=== PATIENT | female | born 1960 | race Caucasian/White ===

== ENCOUNTER 2018-01-15 14:05 | Inpatient (IN) ==
--- NOTE | 2018-01-15 16:10 | ED ---
HPI General Chief Complaint: Abdominal Pain Stated Complaint: swollen stomach/abd pain/diarrhea/blood in stoole Time Seen by Provider: 01/15/18 15:35 Source: patient Mode of arrival: ambulatory Limitations: no limitations History of Present Illness HPI narrative: This patient presents stating that she was referred to the emergency department by a neurologist for the evaluation of abdominal pain and distention. MD complaint: Reports abdominal pain Onset (ago): week(s) (1) Pain Consistency: constant Location: Reports diffuse Severity scale (1-10): 9 Radiation: Reports none Migration to: Reports no migration Relieving factors: nothing Exacerbating factors: nothing Associated symptoms: Reports other (Chest pain, shortness of breath and numbness of her legs); Denies nausea, vomiting, diarrhea, fever and dysuria Related Data Home Medications Medication Instructions Recorded Confirmed No Known Home Medications 01/15/18 01/15/18 Allergies Allergy/AdvReac Type Severity Reaction Status Date / Time No Known Allergies Allergy Verified 01/15/18 15:51 Review of Systems ROS: all other systems reviewed are negative FOR[facility] Medical History Medical History Ascites (Acute) History of bleeding ulcers (Acute) Hypertension (Acute) Social History Social History Substance History: No History of Abuse Second Hand Smoke Exposure: No Smoking Status: Former smoker Tobacco Type: Cigarettes How Often Do You Have a Drink Containing Alcohol: Monthly or less Recent Travel in [facility] within the Last 8 Weeks: No Recent Out of Country Travel within the Last 8 Weeks: No Immunization History Tetanus Immunization: >5 Years Exam Const General: cooperative, comfortable, no acute distress, well developed and well groomed Nutritional Appearance: malnourished and thin Orientation: alert, awake and oriented x3 HENMT Head: normal to inspection, normocephalic and atraumatic Mouth: moist mucous membranes Eyes Conjunctivae: conjunctivae normal Sclera: scleral abnormality (Marked scleral icterus) bilaterally EOM: EOM intact bilaterally Neck Neck: normal visual inspection and full ROM Chest Chest: normal inspection of the chest Resp Effort & Inspection: normal respiratory effort and able to speak in complete sentences Auscultation: clear to auscultation bilaterally Cardio Rate: regular rate Rhythm: regular rhythm GI Inspection: distended and caput medusae present Palpation: tender Back/Spine/Pelvis Cervical Spine: cervical ROM normal Thoracic/Lumbar Spine: thoraco-lumbar ROM normal Skin General: no rashes or lesions noted and turgor normal Neuro General: alert, awake, oriented x3, moves all extremities and CN's II-XI intact bilaterally Extrem General: normal to inspection and full ROM Psych Appearance: grossly normal Mental Status: mental status grossly normal Speech and Movement: speech and movement normal Mood: congruent mood Affect: normal affect Attitude: cooperative Thought Process: normal Thought Content: normal Judgment: judgment good Course Initial Documented Vital Signs Temperature 99.2 F 01/15/18 14:30 Pulse Rate 120 H 01/15/18 14:30 Respiratory Rate 22 01/15/18 14:30 Blood Pressure 118/79 01/15/18 14:30 Pulse Oximetry 99 01/15/18 14:30 Last Documented Vital Signs Temperature 97.8 F 01/15/18 18:00 Pulse Rate 100 H 01/15/18 18:00 Respiratory Rate 16 01/15/18 18:00 Blood Pressure 122/67 01/15/18 18:00 Pulse Oximetry 98 01/15/18 18:00 Medical Decision Making [facility] Narrative Medical decision making narrative: This is a thin, chronically ill-appearing woman who presents to us with a chief complaint of abdominal distention. On exam, she has significant scleral icterus. She has ascites. She has caput medusae. Abdominal workup is in process including ammonia level, PT and PTT and CT of the abdomen and pelvis. CT shows cirrhosis of the liver and splenomegaly with moderate ascites. She also has a gallstone. Medical Screen Exam Complete: Yes Emergency Medical Condition: Yes Differential Diagnosis Differential Diagnosis: Differential diagnosis of abdominal pain includes but is not limited to gastritis, pancreatitis, hepatitis, gastroenteritis, constipation, urinary retention, peptic ulcer disease, diverticulitis or appendicitis Lab Data Lab results reviewed: Yes I reviewed the patient's lab results. Result diagrams: 01/15/18 16:09 01/15/18 16:09 Lab Results 01/15/18 01/15/18 01/15/18 Range/Units 16:09 16: 16:09 WBC 9.8 (4.0-11.0) th/mm3 RBC 2.86 L (4.00-5.30) mil/mm3 Hgb 9.9 L (11.6-15.3) gm/dL Hct 29.5 L (35.0-46.0) % MCV 103.4 H (80.0-100.0) fL MCH 34.7 H (27.0-34.0) pg MCHC 33.6 (32.0-36.0) % RDW 18.3 H (11.6-17.2) % Plt Count 116 L (150-450) th/mm3 MPV 9.0 (7.0-11.0) fL Neut % (Auto) 82.1 H (16.0-70.0) % Lymph % (Auto) 7.1 L (9.0-44.0) % Kimble % (Auto) 10.3 H (0.0-8.0) % Eos % (Auto) 0.2 (0.0-4.0) % Baso % (Auto) 0.3 (0.0-2.0) % Neut # (Auto) 8.1 H (1.8-7.7) th/mm3 Lymph # (Auto) 0.7 L (1.0-4.8) th/mm3 Kimble # (Auto) 1.0 H (0.0-0.9) th/mm3 Eos # (Auto) 0.0 (0.0-0.4) th/mm3 Baso # (Auto) 0.0 (0.0-0.2) th/mm3 WBC Differential . Differential Comment Auto diff final PT 17.2 H (9.8-11.6) sec INR 1.7 Ratio APTT 37.1 H (23.4-31.7) sec Sodium 126 L (136-145) meq/L Potassium 3.9 (3.5-5.1) meq/L Chloride 84 L (98-107) meq/L Carbon Dioxide 28.8 (21.0-32.0) meq/L Anion Gap 13 (5-15) meq/L BUN 11 (7-18) mg/dL Creatinine 0.70 (0.50-1.00) mg/dL Estimated GFR 87 L (>89) mL/min Random Glucose 88 (74-106) mg/dL Calcium 7.5 L (8.5-10.1) mg/dL Magnesium 1.5 (1.5-2.5) mg/dL Total Bilirubin 9.2 H (0.2-1.0) mg/dL AST 158 H (15-37) U/L ALT 57 H (10-53) U/L Alkaline Phosphatase 163 H (45-117) U/L Ammonia (11-32) mcmol/L Total Protein 7.1 (6.4-8.2) g/dL Albumin 2.1 L (3.4-5.0) g/dL Lipase 338 (73-393) U/L 01/15/18 Range/Units 16:09 WBC (4.0-11.0) th/mm3 RBC (4.00-5.30) mil/mm3 Hgb (11.6-15.3) gm/dL Hct (35.0-46.0) % MCV (80.0-100.0) fL MCH (27.0-34.0) pg MCHC (32.0-36.0) % RDW (11.6-17.2) % Plt Count (150-450) th/mm3 MPV (7.0-11.0) fL Neut % (Auto) (16.0-70.0) % Lymph % (Auto) (9.0-44.0) % Kimble % (Auto) (0.0-8.0) % Eos % (Auto) (0.0-4.0) % Baso % (Auto) (0.0-2.0) % Neut # (Auto) (1.8-7.7) th/mm3 Lymph # (Auto) (1.0-4.8) th/mm3 Kimble # (Auto) (0.0-0.9) th/mm3 Eos # (Auto) (0.0-0.4) th/mm3 Baso # (Auto) (0.0-0.2) th/mm3 WBC Differential Differential Comment PT (9.8-11.6) sec INR Ratio APTT (23.4-31.7) sec Sodium (136-145) meq/L Potassium (3.5-5.1) meq/L Chloride (98-107) meq/L Carbon Dioxide (21.0-32.0) meq/L Anion Gap (5-15) meq/L BUN (7-18) mg/dL Creatinine (0.50-1.00) mg/dL Estimated GFR (>89) mL/min Random Glucose (74-106) mg/dL Calcium (8.5-10.1) mg/dL Magnesium (1.5-2.5) mg/dL Total Bilirubin (0.2-1.0) mg/dL AST (15-37) U/L ALT (10-53) U/L Alkaline Phosphatase (45-117) U/L Ammonia 29 (11-32) mcmol/L Total Protein (6.4-8.2) g/dL Albumin (3.4-5.0) g/dL Lipase (73-393) U/L Imaging Data Radiologist's impression: Abdomen/Pelvis CT 01/15/18 16:02 CONCLUSION: 1. Cirrhotic appearing liver with diffusely heterogeneous enhancement of nearly the entire right lobe of the liver. Although this may reflect heterogeneous pattern of sparing, cannot exclude an infiltrative mass. Recommend outpatient Eovist MRI examination for better characterization. 2. Evidence for portal hypertension with moderate amount of ascites. 3. Colonic diverticulosis without definitive evidence for diverticulitis. 4. Cholelithiasis. Discharge Plan Discharge Disposition Patient Disposition: 30 Still Patient Discharge Details Diagnosis: Cirrhosis, Ascites, Congestive splenomegaly Physicians Team ED Provider: Charline Abdalla Primary Care Provider: UNKNOWN, Rxs /Orders / Referrals /Forms Prescriptions: No Action No Known Home Medications RF: 0 Status ED Status: With Doctor
[2018-01-15 16:42] LABS: Baso % (Auto) 0.3 % (0.0-2.0); Eos % (Auto) 0.2 % (0.0-4.0); Hematocrit 29.5 % (35.0-46.0); Hemoglobin 9.9 gm/dL (11.6-15.3); Lymph # (Auto) 0.7 th/mm3 (1.0-4.8); Lymph % (Auto) 7.1 % (9.0-44.0); Mean Corpuscular HGB Conc 33.6 % (32.0-36.0); Mean Corpuscular Hemoglobin 34.7 pg (27.0-34.0); Mean Corpuscular Volume 103.4 fL (80.0-100.0); Mono % (Auto) 10.3 % (0.0-8.0); Neut # (Auto) 8.1 th/mm3 (1.8-7.7); Neut % (Auto) 82.1 % (16.0-70.0); Platelet Count 116 th/mm3 (150-450); Red Blood Count 2.86 mil/mm3 (4.00-5.30); Red Cell Distribution Width 18.3 % (11.6-17.2); White Blood Count 9.8 th/mm3 (4.0-11.0)
[2018-01-15 16:53] LABS: Activated Partial Thrombo Time 37.1 sec (23.4-31.7); INR 1.7 Ratio; Prothrombin Time 17.2 sec (9.8-11.6)
[2018-01-15 17:04] LABS: Alanine Aminotransferase 57 U/L (10-53); Alkaline Phosphatase 163 U/L (45-117); Total Protein 7.1 g/dL (6.4-8.2)
[2018-01-15 17:12] LABS: Albumin 2.1 g/dL (3.4-5.0); Anion Gap 13 meq/L (5-15); Aspartate Aminotransferase 158 U/L (15-37); Blood Urea Nitrogen 11 mg/dL (7-18); Calcium 7.5 mg/dL (8.5-10.1); Carbon Dioxide 28.8 meq/L (21.0-32.0); Chloride 84 meq/L (98-107); Glomerular Filtration Rate 87 mL/min (>89); Glucose,Random 88 mg/dL (74-106); Lipase 338 U/L (73-393); Magnesium 1.5 mg/dL (1.5-2.5); Sodium 126 meq/L (136-145)
[2018-01-15 17:13] LABS: Potassium 3.9 meq/L (3.5-5.1)
--- NOTE | 2018-01-15 18:55 | CT ---
EXAM DATE: 01/15/2018 6:49 PM EST AGE/SEX: 57 years / Female INDICATIONS: Abdominal pain and distention CLINICAL DATA: This is the patient's initial encounter. Patient reports that signs and symptoms have been present for 1 week and indicates a pain score of 8/10. MEDICAL/SURGICAL HISTORY: Hypertension. Hypertension. Bleeding ulcer None. ORAL CONTRAST: No oral contrast ingested. RADIATION DOSE: 6.85 CTDI (mGy) COMPARISON: No prior exams available for comparison. TECHNIQUE: Multiple contiguous axial images were obtained through the abdomen and pelvis following b olus infusion of 88 ml Omnipaque 350 (iohexol) nonionic water-soluble contrast as a single exam dos e. No oral contrast ingested. Using automated exposure control and adjustment of the mA and/or kV ac cording to patient size, radiation dose was kept as low as reasonably achievable to obtain optimal di agnostic quality images. DICOM format image data is available electronically for review and comparis on. FINDINGS: LOWER LUNGS: Mild groundglass opacities at the lung bases. LIVER: Cirrhotic appearing liver with diffusely heterogeneous enhancement of the entire right lobe o f the liver. There is a 1.4 cm cyst centrally in the liver. Portal veins appear diminutive although p atent. Recanalized periumbilical vein. Gallstone in the gallbladder. SPLEEN: Enlarged. PANCREAS: Unremarkable without mass or calcification. KIDNEYS: Kidneys demonstrate symmetrical enhancement and are symmetrical in size without evidence fo r radiopaque renal calculi or hydronephrosis. ADRENAL GLANDS: Unremarkable. AORTA: Earline-aneurysmal. BOWEL/MESENTERY: Moderate amount of ascites. Mild sigmoid diverticulosis and scattered descending co lizz diverticula. No dilated loops of bowel. No free air or pneumatosis. Prominent splenorenal collate rals. ABDOMINAL WALL: Intact. RETROPERITONEUM: No evidence of adenopathy in the retrocrural, para-aortic, or deep pelvic regions. BLADDER: Contours are smooth. REPRODUCTIVE: No abnormal masses or calcifications seen. BONY STRUCTURES: Mild degenerative spondylosis of the lumbar spine. CONCLUSION: 1. Cirrhotic appearing liver with diffusely heterogeneous enhancement of nearly the entire right lob e of the liver. Although this may reflect heterogeneous pattern of sparing, cannot exclude an infiltr ative mass. Recommend outpatient Eovist MRI examination for better characterization. 2. Evidence for portal hypertension with moderate amount of ascites. 3. Colonic diverticulosis without definitive evidence for diverticulitis. 4. Cholelithiasis. Electronically signed by: Ronny Guzman MD 01/15/2018 6:54 PM EST
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
[2018-01-15] MEDS ORDERED: LORazepam 1 MG Tablet PO PRN (20:41)
[2018-01-15] MEDS ORDERED: Haloperidol Inj 5 MG/ML Ampul IV.PUSH PRN (20:41)
[2018-01-15] MEDS: Multivitamin/Minerals Therapeutic Tablet PO SCH (21:18)
--- NOTE | 2018-01-15 21:18 | CT ---
EXAM DATE: 01/15/2018 9:15 PM EST AGE/SEX: 57 years / Female INDICATIONS: Headache. CLINICAL DATA: This is the patient's initial encounter. Patient reports that signs and symptoms have been present for 1 day and indicates a pain score of 6/10. MEDICAL/SURGICAL HISTORY: Hypertension. Ascites None. RADIATION DOSE: 56.35 CTDI (mGy) COMPARISON: [facility] – [place] ABDOMEN & PELVIS W CONTRAST, 01/15/2018. . TECHNIQUE: CT of the head without contrast. Using automated exposure control and adjustment of the mA and/or kV according to patient size, radiation dose was kept as low as reasonably achievable to ob tain optimal diagnostic quality images. DICOM format image data is available electronically for revi ew and comparison. FINDINGS: Cerebrum: Moderate diffuse cerebral atrophy. The ventricles are normal for degree of atrophy. No ambika dence of midline shift, mass lesion, hemorrhage or acute infarction. No extraaxial fluid collections are seen. Posterior Fossa: The cerebellum and brainstem are intact. The 4th ventricle is midline. The cerebe llopontine angle is unremarkable. Extracranial: The visualized portion of the orbits is intact. Skull: The calvaria is intact. No evidence of skull fracture. CONCLUSION: 1. Moderate diffuse cerebral atrophy, slightly out of proportion to age. 2. No acute intracranial abnormality. . Electronically signed by: Ronny Guzman MD 01/15/2018 9:17 PM EST
[2018-01-15] MEDS: Folic Acid 1 MG Tablet PO SCH (22:33)
[2018-01-16] LABS: Anion Gap 12 meq/L (5-15); Blood Urea Nitrogen 11 mg/dL (7-18); Carbon Dioxide 31.4 meq/L (21.0-32.0); Chloride 84 meq/L (98-107); Glomerular Filtration Rate Greater Than 89 mL/min (>89); Glucose,Random 83 mg/dL (74-106); Sodium 127 meq/L (136-145)
[2018-01-16 00:07] LABS: Potassium 2.7 meq/L (3.5-5.1)
[2018-01-16 00:14] LABS: Albumin 1.9 g/dL (3.4-5.0); Calcium-Albumin Corrected 8.7 mg/dL (8.5-10.1)
[2018-01-16 01:07] LABS: Magnesium 1.2 mg/dL (1.5-2.5)
[2018-01-16] MEDS: Potassium Chlor 20 mEq Premix 20 MEQ/100 ML PIGGYBACK IV.SIG SCH ×3 (01:15→22:31)
[2018-01-16 02:44] LABS: Bilirubin,Urine Moderate (Negative); Clarity,Urine Hazy (Clear); Color,Urine Amber (Yellw/Straw); Glucose,Urine (UA) Negative (Negative); Hyaline Casts,Urine 17 /lpf (0-3); Leukocyte Esterase,Urine Negative (Negative); Mucus,Urine Few /lpf (Occasional); Nitrite,Urine Negative (Negative); Renal Epithelial Cells,Urine <1 /hpf; Squamous Epithelial Cell,Urine 4 /hpf (0-5); Urobilinogen,Urine 4 or Greater mg/dL (Less than 2)
[2018-01-16 02:46] LABS: Ictotest,Urine Positive (Negative)
[2018-01-16 02:47] LABS: Amphetamine Screen,Urine Neg (Neg); Barbiturate Screen,Urine Neg (Neg); Cannabinoid Screen,Urine Neg (Neg); Cocaine Screen,Urine Neg (Neg)
[2018-01-16 02:51] LABS: Opiate Screen,Urine Neg (Neg)
[2018-01-16 07:35] LABS: Hematocrit 24.2 % (35.0-46.0); Hemoglobin 8.3 gm/dL (11.6-15.3); Mean Corpuscular HGB Conc 34.1 % (32.0-36.0); Mean Corpuscular Hemoglobin 34.5 pg (27.0-34.0); Mean Corpuscular Volume 101.4 fL (80.0-100.0); Mean Platelet Volume 8.4 fL (7.0-11.0); Platelet Count 93 th/mm3 (150-450); Red Blood Count 2.39 mil/mm3 (4.00-5.30); Red Cell Distribution Width 17.1 % (11.6-17.2); White Blood Count 6.6 th/mm3 (4.0-11.0)
[2018-01-16 08:11] LABS: Alanine Aminotransferase 46 U/L (10-53); Albumin 1.7 g/dL (3.4-5.0); Alkaline Phosphatase 136 U/L (45-117); Anion Gap 9 meq/L (5-15); Aspartate Aminotransferase 108 U/L (15-37); Blood Urea Nitrogen 9 mg/dL (7-18); Calcium 6.6 mg/dL (8.5-10.1); Carbon Dioxide 33.5 meq/L (21.0-32.0); Chloride 87 meq/L (98-107); Glomerular Filtration Rate Greater Than 89 mL/min (>89); Glucose,Random 88 mg/dL (74-106); Sodium 129 meq/L (136-145); Total Protein 5.7 g/dL (6.4-8.2)
[2018-01-16 08:23] LABS: Potassium 2.7 meq/L (3.5-5.1)
[2018-01-16] MEDS ORDERED: Cefotaxime Inj 2,000 MG in Sodium Chloride 0.9% Inj 100 ML IV.SIG SCH (09:00)
[2018-01-16 09:02] LABS: Hepatitis A IgM Antibody Nonreactive (Nonreactive)
[2018-01-16 09:03] LABS: Hepatitits B Surface Antigen Nonreactive (Nonreactive)
[2018-01-16] MEDS: Multivitamin Inj 10 ML, Thiamine Inj 100 MG, Folic Acid Inj 1 MG in Sodium Chloride 0.4... IV.SIG SCH (10:12)
[2018-01-16] MEDS: Multivitamin/Minerals Therapeutic Tablet PO SCH (10:16)
[2018-01-16] MEDS: Pantoprazole Sodium 20 MG DR Tablet PO SCH (10:16)
[2018-01-16] MEDS: Magnesium Oxide 400 MG Tablet PO SCH (10:16)
[2018-01-16] MEDS: Folic Acid 1 MG Tablet PO SCH (10:17)
[2018-01-16] MEDS ORDERED: Potassium Chloride 20 MEQ Pwd Pkt NG/OG ONE (11:00)
[2018-01-16] MEDS ORDERED: Potassium Chloride 25 MEQ Effervescent Tablet NG/OG ONE (11:00)
[2018-01-16 14:06] LABS: Calcium 6.7 mg/dL (8.5-10.1); Carbon Dioxide 33.9 meq/L (21.0-32.0)
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
[2018-01-16 14:17] LABS: Calcium-Albumin Corrected 8.3 mg/dL (8.5-10.1)
[2018-01-16 14:25] LABS: Potassium 2.6 meq/L (3.5-5.1)
[2018-01-16] MEDS ORDERED: Potassium Chlor 20 mEq Premix 20 MEQ/100 ML PIGGYBACK IV.SIG ONE (15:40)
[2018-01-16 20:08] LABS: Carbon Dioxide 34.2 meq/L (21.0-32.0)
[2018-01-16 20:26] LABS: Potassium 2.9 meq/L (3.5-5.1)
[2018-01-16 20:32] LABS: Calcium-Albumin Corrected 8.6 mg/dL (8.5-10.1)
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
[2018-01-16] MEDS ORDERED: Magnesium Citrate Liq 300 ML Bottle PO ONE (23:00)
[2018-01-17] MEDS ORDERED: Magnesium Oxide 400 MG Tablet PO ONE (00:09)
[2018-01-17] MEDS: Potassium Chlor 20 mEq Premix 20 MEQ/100 ML PIGGYBACK IV.SIG SCH (00:42)
[2018-01-17 07:07] LABS: Alpha Fetoprotein Tumor Marker 4.1 ng/mL (0.5-8.0); Anion Gap 7 meq/L (5-15); Blood Urea Nitrogen 7 mg/dL (7-18); Calcium 6.8 mg/dL (8.5-10.1); Chloride 92 meq/L (98-107); Glomerular Filtration Rate Greater Than 89 mL/min (>89); Glucose,Random 144 mg/dL (74-106); Magnesium 1.2 mg/dL (1.5-2.5); Potassium 3.5 meq/L (3.5-5.1); Sodium 132 meq/L (136-145)
[2018-01-17 07:19] LABS: Albumin 1.7 g/dL (3.4-5.0); Calcium-Albumin Corrected 8.6 mg/dL (8.5-10.1)
[2018-01-17 07:23] LABS: Eos # (Auto) 0.1 th/mm3 (0.0-0.4); Eos % (Auto) 1.6 % (0.0-4.0); Hematocrit 22.8 % (35.0-46.0); Lymph # (Auto) 0.9 th/mm3 (1.0-4.8); Lymph % (Auto) 19.3 % (9.0-44.0); Mean Corpuscular HGB Conc 35.1 % (32.0-36.0); Mean Corpuscular Hemoglobin 35.5 pg (27.0-34.0); Mean Corpuscular Volume 100.9 fL (80.0-100.0); Mono # (Auto) 0.6 th/mm3 (0.0-0.9); Mono % (Auto) 13.3 % (0.0-8.0); Neut # (Auto) 3.2 th/mm3 (1.8-7.7); Neut % (Auto) 64.8 % (16.0-70.0); Platelet Count 84 th/mm3 (150-450); Red Blood Count 2.26 mil/mm3 (4.00-5.30); Red Cell Distribution Width 17.5 % (11.6-17.2); White Blood Count 4.9 th/mm3 (4.0-11.0)
[2018-01-17 08:14] LABS: Platelet Morphology Normal (Normal); Target Cells 1+
[2018-01-17] MEDS: Pantoprazole Sodium 20 MG DR Tablet PO SCH (08:47)
[2018-01-17] MEDS: Magnesium Oxide 400 MG Tablet PO SCH (08:47)
[2018-01-17] MEDS: Multivitamin/Minerals Therapeutic Tablet PO SCH (08:47)
[2018-01-17] MEDS: Multivitamin Inj 10 ML, Thiamine Inj 100 MG, Folic Acid Inj 1 MG in Sodium Chloride 0.4... IV.SIG SCH (08:48)
--- NOTE | 2018-01-17 11:32 | ECHRPT ---
Indication: Heart failure CONCLUSIONS Normal left ventricular size. Wall thickness is normal. The left ventricular systolic function is normal with an estimated ejection fraction in the range of 55-60%. No definite regional wall motion abnormalities are present. The estimated pulmonary arterial pressure is 40 mmHg. There is trace to mild tricuspid regurgitati on. BP: / HR: Rhythm: MEASUREMENTS (Male / Female) Normal Values Technical Quality: 2D ECHO LV Diastolic Diameter PLAX 4.5 cm 4.2 - 5.9 / 3.9 - 5.3 cm LV Systolic Diameter PLAX 2.8 cm IVS Diastolic Thickness 0.8 cm 0.6 - 1.0 / 0.6 - 0.9 cm LVPW Diastolic Thickness 1.0 cm 0.6 - 1.0 / 0.6 - 0.9 cm LV Relative Wall Thickness 0.4 RV Internal Dim ED PLAX 3.0 cm LVOT Diameter 1.6 cm Aortic Root Diameter 2.5 cm LA Systolic Diameter LX 3.1 cm 3.0 - 4.0 / 2.7 - 3.8 cm LV Ejection Fraction MOD 4C 58.3 % LV Ejection Fraction 4C AL 60.7 % M-MODE Aortic Root Diameter MM 3.0 cm LA Systolic Diameter MM 4.4 cm LA Ao Ratio MM 1.5 AV Cusp Separation MM 2.3 cm DOPPLER AV Peak Velocity 179.0 cm/s AV Peak Gradient 12.8 mmHg LVOT Peak Velocity 130.0 cm/s LVOT Peak Gradient 6.8 mmHg AV Area Cont Eq pk 1.5 cm Mitral E Point Velocity 77.0 cm/s Mitral A Point Velocity 115.0 cm/s Mitral E to A Ratio 0.7 LV E' Lateral Velocity 8.4 cm/s Mitral E to LV E' Lateral Ratio 9.2 LV E' Septal Velocity 6.6 cm/s Mitral E to LV E' Septal Ratio 11.6 TR Peak Velocity 350.0 cm/s TR Peak Gradient 49.0 mmHg Right Atrial Pressure 10.0 mmHg Pulmonary Artery Systolic Pressu 59.0 mmHg Right Ventricular Systolic Press 59.0 mmHg PV Peak Velocity 103.0 cm/s PV Peak Gradient 4.2 mmHg FINDINGS LEFT VENTRICLE Normal left ventricular size. Wall thickness is normal. The left ventricular systolic function is normal with an estimated ejection fraction in the range of 55-60%. No definite regional wall motion abnormalities are present. RIGHT VENTRICLE Normal right ventricular size and systolic function. LEFT ATRIUM The left atrial size is mildly dilated. RIGHT ATRIUM The right atrial size is normal. ATRIAL SEPTUM Normal atrial septal thickness without atrial level shunting by limited color doppler interrogation. AORTA The aortic root and proximal ascending aorta are normal in size on limited imaging. MITRAL VALVE Trace mitral valve regurgitation. AORTIC VALVE Trileaflet aortic valve. No aortic valve stenosis or regurgitation. TRICUSPID VALVE The estimated pulmonary arterial pressure is 40 mmHg. There is trace to mild tricuspid regurgitation. PULMONARY VALVE No pulmonary valve regurgitation or stenosis. VESSELS The inferior vena cava is normal in size. PERICARDIUM No pericardial effusion. Chato Martínez MD (Electronically Signed) Final Date:17 January 2018 11:31
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
[2018-01-17 16:04] LABS: % Iron Saturation 48.7 % (20-50)
[2018-01-17 16:21] LABS: Alpha Fetoprotein Tumor Marker 4.2 ng/mL (0.5-8.0)
--- NOTE | 2018-01-17 19:56 | ECG ---
Date Performed: 01/16/2018 Time Performed: 11:13:48 PTAGE: 57 years EKG: SINUS TACHYCARDIA ABNORMAL RHYTHM ECG NO PREVIOUS TRACING DOCTOR: Abelino Liao Interpretating Date/Time 01/17/2018 19:53:32
[2018-01-18] MEDS ORDERED: Morphine Inj 4 MG/ML Vial IV.PUSH ONE (01:15)
[2018-01-18 05:53] LABS: Baso # (Auto) 0.1 th/mm3 (0.0-0.2); Baso % (Auto) 1.4 % (0.0-2.0); Eos # (Auto) 0.1 th/mm3 (0.0-0.4); Eos % (Auto) 1.3 % (0.0-4.0); Hematocrit 22.9 % (35.0-46.0); Hemoglobin 7.9 gm/dL (11.6-15.3); Lymph % (Auto) 18.7 % (9.0-44.0); Mean Corpuscular HGB Conc 34.7 % (32.0-36.0); Mean Corpuscular Hemoglobin 35.1 pg (27.0-34.0); Mean Corpuscular Volume 101.1 fL (80.0-100.0); Mean Platelet Volume 8.9 fL (7.0-11.0); Mono # (Auto) 0.7 th/mm3 (0.0-0.9); Mono % (Auto) 12.8 % (0.0-8.0); Neut # (Auto) 3.5 th/mm3 (1.8-7.7); Neut % (Auto) 65.8 % (16.0-70.0); Platelet Count 80 th/mm3 (150-450); Red Blood Count 2.26 mil/mm3 (4.00-5.30); Red Cell Distribution Width 17.5 % (11.6-17.2); White Blood Count 5.4 th/mm3 (4.0-11.0)
[2018-01-18 06:26] LABS: Alanine Aminotransferase 42 U/L (10-53); Albumin 1.7 g/dL (3.4-5.0); Alkaline Phosphatase 273 U/L (45-117); Anion Gap 6 meq/L (5-15); Aspartate Aminotransferase 96 U/L (15-37); Blood Urea Nitrogen 8 mg/dL (7-18); Calcium 6.5 mg/dL (8.5-10.1); Carbon Dioxide 33.5 meq/L (21.0-32.0); Chloride 92 meq/L (98-107); Glomerular Filtration Rate Greater Than 89 mL/min (>89); Glucose,Random 102 mg/dL (74-106); Sodium 131 meq/L (136-145); Total Protein 5.8 g/dL (6.4-8.2)
[2018-01-18 06:29] LABS: Potassium 2.7 meq/L (3.5-5.1)
[2018-01-18] MEDS ORDERED: Potassium Chlor 20 mEq Premix 20 MEQ/100 ML PIGGYBACK IV.SIG ONE (07:10)
[2018-01-18] MEDS ORDERED: Potassium Chloride 25 MEQ Effervescent Tablet PO ONE (07:10)
[2018-01-18 07:44] LABS: Platelet Morphology Normal (Normal); Target Cells 2+
--- NOTE | 2018-01-18 10:54 | GIPROC ---
[facility] [address] [facility]. [facility], [address] EGD PROCEDURE REPORT EXAM DATE: 01/18/2018 PATIENT NAME: Lanette Mckee MR #: [id number] BIRTHDATE: 1960 ATTENDING: Gaurav Herrera MD ORDER #: [id number] [employer] INTERN: Scotty Katz Jones, Julie, and Ilsa Lieberman STATUS: inpatient INDICATIONS: The patient is a 57 yr old female here for an EGD due to Ascites, Cirrhosis PROCEDURE PERFORMED: EGD, diagnostic MEDICATIONS: Per Anesthesia and None. TOPICAL ANESTHETIC: none CONSENT: The patient understands the risks and benefits of the procedure and understands that these risks include, but are not limited to: sedation, allergic reaction, infection, perforation and/or bleeding. Alternative means of evaluation and treatment include, among others: physical exam, x-rays, and/or surgical intervention. The patient elects to proceed with this endoscopic procedure. medical equipment was checked for proper function. Hand hygiene and appropriate measures for infection prevention was taken. After the risks, benefits and alternatives of the procedure were thoroughly explained, Informed consent was verified, confirmed and timeout was successfully executed by the treatment team. The patient was anesthetized with topical anesthesia and the Pentax [id number] endoscope was introduced through the mouth and advanced to the second portion of the duodenum. Retroflexed views revealed a hiatal hernia The gastroscope was then slowly withdrawn and removed. ESOPHAGUS: There was LA Class B esophagitis noted. There were 2 columns of small varices. STOMACH: Moderate portal hypertensive gastropathy was found. DUODENUM: The duodenal mucosa appeared normal in the entire duodenum. ADVERSE EVENTS: There were no complications. IMPRESSIONS: 1. There was LA Class B esophagitis noted 2. Portal hypertensive gastropathy was found 3. Normal duodenal mucosa in the entire duodenum 4. Retroflexed views revealed a hiatal hernia RECOMMENDATIONS: Add Aldactone,Xifaxan PATIENT CONDITION: stable DISPOSITION: Inpatient REPEAT EXAM: Return 1 year EGD Gaurav Herrera MD eSigned: Gaurav Herrera MD 01/18/2018 10:54 AM cc: PATIENT NAME: Lanette Mckee MR#: [id number]
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
[2018-01-18 14:03] LABS: Anion Gap 6 meq/L (5-15); Blood Urea Nitrogen 8 mg/dL (7-18); Calcium 6.8 mg/dL (8.5-10.1); Carbon Dioxide 35.1 meq/L (21.0-32.0); Chloride 92 meq/L (98-107); Glomerular Filtration Rate Greater Than 89 mL/min (>89); Glucose,Random 107 mg/dL (74-106); Sodium 133 meq/L (136-145)
[2018-01-18 14:12] LABS: Potassium 2.7 meq/L (3.5-5.1)
[2018-01-18 14:20] LABS: Albumin 1.8 g/dL (3.4-5.0); Calcium-Albumin Corrected 8.6 mg/dL (8.5-10.1)
[2018-01-18] MEDS: Multivitamin/Minerals Therapeutic Tablet PO SCH (17:02)
[2018-01-18] MEDS: Magnesium Oxide 400 MG Tablet PO SCH (17:03)
[2018-01-18] MEDS: Multivitamin Inj 10 ML, Thiamine Inj 100 MG, Folic Acid Inj 1 MG in Sodium Chloride 0.4... IV.SIG SCH (17:28)
[2018-01-18] MEDS: Potassium Chlor 20 mEq Premix 20 MEQ/100 ML PIGGYBACK IV.SIG SCH ×2 (17:34→19:11)
[2018-01-18] MEDS: rifAXIMin 550 MG Tablet PO SCH ×2 (19:45→20:02)
[2018-01-18] MEDS: Pantoprazole Sodium 20 MG DR Tablet PO SCH (20:04)
[2018-01-18 22:28] LABS: Anion Gap 5 meq/L (5-15); Blood Urea Nitrogen 6 mg/dL (7-18); Calcium 6.7 mg/dL (8.5-10.1); Carbon Dioxide 35.3 meq/L (21.0-32.0); Chloride 92 meq/L (98-107); Glomerular Filtration Rate Greater Than 89 mL/min (>89); Glucose,Random 101 mg/dL (74-106); Sodium 132 meq/L (136-145)
[2018-01-18 22:44] LABS: Potassium 2.7 meq/L (3.5-5.1)
[2018-01-18 22:56] LABS: Albumin 1.9 g/dL (3.4-5.0); Calcium-Albumin Corrected 8.4 mg/dL (8.5-10.1)
[2018-01-18] MEDS ORDERED: Magnesium Oxide 400 MG Tablet PO ONE (23:43)
[2018-01-19 03:24] LABS: Baso % (Auto) 0.7 % (0.0-2.0); Eos # (Auto) 0.1 th/mm3 (0.0-0.4); Eos % (Auto) 1.1 % (0.0-4.0); Hematocrit 23.6 % (35.0-46.0); Hemoglobin 8.1 gm/dL (11.6-15.3); Lymph # (Auto) 0.9 th/mm3 (1.0-4.8); Mean Corpuscular HGB Conc 34.4 % (32.0-36.0); Mean Corpuscular Hemoglobin 34.9 pg (27.0-34.0); Mean Corpuscular Volume 101.7 fL (80.0-100.0); Mean Platelet Volume 9.1 fL (7.0-11.0); Mono # (Auto) 0.8 th/mm3 (0.0-0.9); Mono % (Auto) 14.7 % (0.0-8.0); Neut # (Auto) 3.8 th/mm3 (1.8-7.7); Neut % (Auto) 67.5 % (16.0-70.0); Platelet Count 90 th/mm3 (150-450); Red Blood Count 2.32 mil/mm3 (4.00-5.30); Red Cell Distribution Width 17.7 % (11.6-17.2); White Blood Count 5.7 th/mm3 (4.0-11.0)
[2018-01-19 03:36] LABS: Anion Gap 5 meq/L (5-15); Blood Urea Nitrogen 6 mg/dL (7-18); Calcium 6.7 mg/dL (8.5-10.1); Carbon Dioxide 32.7 meq/L (21.0-32.0); Chloride 94 meq/L (98-107); Glomerular Filtration Rate Greater Than 89 mL/min (>89); Glucose,Random 97 mg/dL (74-106); Potassium 3.4 meq/L (3.5-5.1); Sodium 132 meq/L (136-145)
[2018-01-19 03:43] LABS: Albumin 1.7 g/dL (3.4-5.0); Calcium-Albumin Corrected 8.5 mg/dL (8.5-10.1)
[2018-01-19 04:11] LABS: Target Cells 1+
[2018-01-19 08:01] LABS: Anion Gap 5 meq/L (5-15); Blood Urea Nitrogen 7 mg/dL (7-18); Calcium 6.9 mg/dL (8.5-10.1); Chloride 94 meq/L (98-107); Glomerular Filtration Rate Greater Than 89 mL/min (>89); Glucose,Random 142 mg/dL (74-106); Potassium 3.4 meq/L (3.5-5.1); Sodium 131 meq/L (136-145)
[2018-01-19 08:08] LABS: Albumin 1.7 g/dL (3.4-5.0); Calcium-Albumin Corrected 8.7 mg/dL (8.5-10.1)
[2018-01-19] MEDS: rifAXIMin 550 MG Tablet PO SCH ×2 (09:16→20:34)
[2018-01-19] MEDS: Multivitamin/Minerals Therapeutic Tablet PO SCH (09:17)
[2018-01-19] MEDS: Magnesium Oxide 400 MG Tablet PO SCH (09:20)
[2018-01-19] MEDS: Multivitamin Inj 10 ML, Thiamine Inj 100 MG, Folic Acid Inj 1 MG in Sodium Chloride 0.4... IV.SIG SCH (09:25)
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
--- NOTE | 2018-01-19 15:12 | P.PNGI ---
Subjective Interval history: Pt resting in bed Very nausea, no emesis Has not eaten anything from her lunch tray BM earlier today, states soft Continued abdominal pain and swelling Physical Exam Vital signs: Vital Signs 01/18/18 16:00 01/18/18 20:00 01/19/18 00:00 Temperature 97.8 F 98.8 F 98.6 F Pulse Rate 99 H 102 H 101 H Respiratory Rate 17 16 17 Blood Pressure 112/64 104/67 93/59 L Pulse Oximetry 95 96 96 01/19/18 04:00 01/19/18 08:00 01/19/18 12:00 Temperature 97.9 F 97.8 F 98.4 F Pulse Rate 95 H 98 H 101 H Respiratory Rate 16 17 17 Blood Pressure 93/56 L 97/55 L 100/63 Pulse Oximetry 94 L 94 L 96 Intake & Output 01/18/18 01/19/18 01/19/18 18:59 06:59 18:59 Intake Total 200 / 200 1091.2 / 1091.2 611.2 / 611.2 Output Total 1000 / 1000 Balance 200 / 200 91.2 / 91.2 611.2 / 611.2 Weight 57 kg Intake: IV 100 / 100 811.2 / 811.2 611.2 / 611.2 MVI-12 Inj 10 ML Thiamine Inj 511.2 / 511.2 511.2 / 511.2 100 MG Folvite Inj 1 MG In 1/2 Normal Saline Inj 500 ML @ 127. 8 mls/hr IV.SIG DAILY MAX Rx#: [id number] KCl 20 mEq Premix Inj 20 meq In 300 / 300 100 ml @ 50 mls/hr IV.SIG Q2H MAX Rx#:[id number] Rocephin Inj 2,000 MG In NS Inj 100 / 100 100 / 100 100 ML @ 200 mls/hr IV.SIG Q24H MAX Rx#:[id number] Oral 280 / 280 Anesthesia Amount 100 / 100 Output: Urine 1000 / 1000 Other: Date of Last Bowel Movement 01/19/18 - Constitutional no acute distress - Routine HEENT Exam Head: Present: normocephalic, atraumatic Eye: Present: conjunctival icterus - Routine Respiratory Exam Absent: accessory muscle use - Routine Abdominal Exam Present: soft, normoactive bowel sounds, distended. Absent: tenderness - Routine Skin Exam Present: dry, warm - Routine Neurological Exam Present: alert, oriented X3 Results - Labs CBC & Chem 7: 01/19/18 02:32 01/19/18 06:55 Laboratory Results - last 24 hr 01/16/18 01/17/18 01/18/18 07:13 14:59 20:29 WBC RBC Hgb Hct MCV MCH MCHC RDW Plt Count MPV Prelim Diff (Auto) Neut % (Auto) Lymph % (Auto) [place] % (Auto) Eos % (Auto) Baso % (Auto) Neut # (Auto) Lymph # (Auto) [place] # (Auto) Eos # (Auto) Baso # (Auto) WBC Differential Diff Scan Differential Comment Platelet Estimate Target Cells Sodium Potassium Chloride Carbon Dioxide Anion Gap BUN Creatinine Estimated GFR POC Glucose 116 H Random Glucose Calcium Calcium Adj for Albumin Magnesium Ammonia Albumin Thiamine 36 L ROXANN Screen Neg 01/18/18 01/18/18 01/19/18 21:16 21:16 02:32 WBC 5.7 RBC 2.32 L Hgb 8.1 L Hct 23.6 L MCV 101.7 H MCH 34.9 H MCHC 34.4 RDW 17.7 H Plt Count 90 L MPV 9.1 Prelim Diff (Auto) Slide review pending Neut % (Auto) 67.5 Lymph % (Auto) 16.0 [place] % (Auto) 14.7 H Eos % (Auto) 1.1 Baso % (Auto) 0.7 Neut # (Auto) 3.8 Lymph # (Auto) 0.9 L [place] # (Auto) 0.8 Eos # (Auto) 0.1 Baso # (Auto) 0.0 WBC Differential . Diff Scan Auto diff confirmed Differential Comment . Platelet Estimate Low L Target Cells 1+ H Sodium 132 L Potassium 2.7 L* Chloride 92 L Carbon Dioxide 35.3 H Anion Gap 5 BUN 6 L Creatinine 0.49 L Estimated GFR Greater than 89 POC Glucose Random Glucose 101 Calcium 6.7 L* Calcium Adj for Albumin 8.4 L Magnesium 1.1 L Ammonia Albumin 1.9 L Thiamine ROXANN Screen 01/19/18 01/19/18 01/19/18 02:32 02:32 06:55 WBC RBC Hgb Hct MCV MCH MCHC RDW Plt Count MPV Prelim Diff (Auto) Neut % (Auto) Lymph % (Auto) [place] % (Auto) Eos % (Auto) Baso % (Auto) Neut # (Auto) Lymph # (Auto) [place] # (Auto) Eos # (Auto) Baso # (Auto) WBC Differential Diff Scan Differential Comment Platelet Estimate Target Cells Sodium 132 L 131 L Potassium 3.4 L 3.4 L Chloride 94 L 94 L Carbon Dioxide 32.7 H 32.0 Anion Gap 5 5 BUN 6 L 7 Creatinine 0.41 L 0.51 Estimated GFR Greater than 89 Greater than 89 POC Glucose Random Glucose 97 142 H Calcium 6.7 L* 6.9 L* Calcium Adj for Albumin 8.5 8.7 Magnesium Ammonia 40 H Albumin 1.7 L 1.7 L Thiamine ROXANN Screen 01/19/18 07:48 WBC RBC Hgb Hct MCV MCH MCHC RDW Plt Count MPV Prelim Diff (Auto) Neut % (Auto) Lymph % (Auto) [place] % (Auto) Eos % (Auto) Baso % (Auto) Neut # (Auto) Lymph # (Auto) [place] # (Auto) Eos # (Auto) Baso # (Auto) WBC Differential Diff Scan Differential Comment Platelet Estimate Target Cells Sodium Potassium Chloride Carbon Dioxide Anion Gap BUN Creatinine Estimated GFR POC Glucose 173 H Random Glucose Calcium Calcium Adj for Albumin Magnesium Ammonia Albumin Thiamine ROXANN Screen Assessment and Plan - Plan Assessment: - New onset ascites with new diagnosis of cirrhosis of unclear etiology Pt states she has been having abdominal distention a little over a week, denies history of this. Has not recently been seen by her PCP. Denies history of liver issues. Her father had liver issues, unsure if he was a heavy drinker. Pt denies history of alcohol abuse. Denies any illicit drug use. Denies OTC meds, herbs, supplements. Hepatitis panel negative. ROXANN negative. Further labs pending. Labs (01/18) AST-96 ALT-42 Alk phos-273 T bili-4.6 CT abd/pelvis W IV contrast (01/15) Cirrhotic appearing liver with diffusely heterogeneous enhancement of nearly the entire right lobe of the liver. Although this may reflect heterogeneous pattern of sparing, cannot exclude an infiltrative mass. Recommend outpatient Eovist MRI examination for better characterization. Evidence for portal hypertension with moderate amount of ascites. Colonic diverticulosis without definitive evidence for diverticulitis. Cholelithiasis. EGD (01/18) Class B esophagitis, portal hypertensive gastropathy was found, 2 columns of small varices, normal duodenal mucosa in the entire duodenum, hiatal hernia - Thrombocytopenia, hypoalbuminemia, and coagulopathy secondary to cirrhosis (01/19) Ascites being managed medically with Lasix and Spironolactone. Ammonia slightly elevated, pt is on Xifaxan and Lactulose. Plan: Pt needs follow up with tertiary center to undergo work up for possible liver transplant Pt will need to follow up in our office for referral Continue diuretics Avoid hepatotoxins Electrolyte correction per primary team MR abdomen recommended outpatient Per Dr. Herrera pt is cleared for DC and should follow up in office in 2-4 weeks This patient has been seen and examined by myself and Dr. Herrera and this note is written on his behalf
[2018-01-19 20:24] VITALS: RESP 18
[2018-01-20 08:43] VITALS: BP 102/63; PULSE 103; TEMP 97.9; O2SAT 91
[2018-01-20] MEDS: Magnesium Oxide 400 MG Tablet PO SCH (09:03)
[2018-01-20] MEDS: rifAXIMin 550 MG Tablet PO SCH (09:04)
[2018-01-20] MEDS: Multivitamin/Minerals Therapeutic Tablet PO SCH (09:04)
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
[2018-01-20] MEDS: Multivitamin Inj 10 ML, Thiamine Inj 100 MG, Folic Acid Inj 1 MG in Sodium Chloride 0.4... IV.SIG SCH (11:33)
[2018-01-21 16:06] LABS: Smooth Muscle Total Auto Abs Negative (Negative)
== END 2018-01-20 11:02 | disposition home or self-care (01) ==
LOC: NEPE 14:05 → NEDA 19:24 → N07 21:41
PROVIDERS: ADMIT Family Medicine; ATTEND Family Medicine
PROC: PANENDO (2018-01-18 10:18)